=== PATIENT | male | born 1995 | race Caucasian/White ===

== ENCOUNTER 2017-06-11 18:54 | Emergency (ER) | payer SELFPAY ==
[~2017-06-11] VITALS: Ht 185.4 cm; Wt 83.0 kg
[2017-06-11] MEDS ORDERED: IPRATRPIUM/ALBUTEROL 0.5/2.5MG 3 ML NEBU. ONE (19:14)
[2017-06-11] MEDS ORDERED: IPRATRPIUM/ALBUTEROL 0.5/2.5MG 3 ML NEBU. NEB ONE (19:15)
[2017-06-11] MEDS ORDERED: ALBUTEROL SULFATE 8GM INHALER. ONE (19:31)
[2017-06-11] MEDS ORDERED: predniSONE 20 MG TABLET PO ONE (19:45)
[2017-06-11] MEDS ORDERED: AZITHROMYCIN 250 MG TABLET. PO ONE (19:45)
[2017-06-11] MEDS ORDERED: ALBUTEROL SULFATE 8GM INHALER. INH ONE (20:00)
[2017-06-11 20:17] VITALS: BP 128/76
[2017-06-11] MEDS ORDERED: PRED50TA PO (20:28)
[2017-06-11] MEDS ORDERED: ALBU8.5H8 INH (20:28)
[2017-06-11] MEDS ORDERED: AZIT250T PO (20:28)
--- NOTE | 2017-06-11 20:28 | PHYS DOC ---
Past History Past Medical History: Asthma Past Surgical History: No Surgical History Alcohol Use: None Drug Use: None Adult General Chief Complaint Chief Complaint: SHORTNESS OF BREATH HPI HPI Patient is a 22-year-old gentleman with a history of seeing for asthma who presents here today complaining of shortness of breath for 3 days. Patient reports he is concerned that he might have pneumonia or bronchitis. Patient reports he does have a history of asthma. No history of hypertension diabetes lung liver or kidney problems other than asthma. Patient has any prior surgeries. Patient has no known drug allergies. Patient does not smoke drink or do any drugs. Patient has any fevers shakes chills. Patient reports she's had a yellow productive cough. Patient denies any nausea vomiting diarrhea. Patient does have a sore throat. Patient has any ear pain. Patient reports that he uses albuterol MDIs at home however he has run out of his medication. Review of systems: Constitutional: Denies fever or chills Eyes: Denies change in visual acuity, redness, or eye pain HENT: Denies nasal congestion or sore throat Respiratory: Denies cough or shortness of breath All other systems were reviewed and found to be within normal limits, except as documented in this note. Physical exam: Constitutional: Well developed, well nourished, no acute distress, non-toxic appearance. HENT: Normocephalic, atraumatic, bilateral external ears normal, nose normal. Eyes: PERRLA, EOMI, conjunctiva normal, no discharge. Neck: Normal range of motion, no tenderness, supple, no stridor. Cardiovascular: Heart rate regular rhythm, Lungs & Thorax: Mild inspiratory and expiratory wheezing. No tachypnea. No E to a changes. Abdomen: No abdominal distention. Skin: Warm, dry, no erythema, no rash. Back: Normal spinal curvature Extremities: No tenderness, no cyanosis, no clubbing, ROM intact, no edema. Neurologic: Alert and oriented X 3, normal motor function, normal sensory function, no focal deficits noted. Psychologic: Affect normal, judgement normal, mood normal. Chest x-ray as interpreted by ER physician reveals: Normal heart no infiltrates or effusions. Assessment and plan: 22-year-old gentleman who presents here today with an asthma exacerbation secondary to bronchitis. It's unclear whether or not the patient may have an early pneumonia given his symptoms patient be started on antibiotics. Patient was given a DuoNeb in the ED with significant improvement in his symptoms. Patient was started on steroids as well. Patient be given a prescription for prednisone, albuterol, and antibiotics. Patient is a bleeding the ER without any difficulty. Patient feels much better and does not feel that he needs to be admitted this time. 1. Current Medications Current Medications Current Medications Medications (Trade) Dose Ordered Sig/Francoise Start Time Stop Time Status Last Admin Dose Admin Albuterol Sulfate (Ventolin Hfa) 1 puff 1X ONCE 06/11/17 20:00 06/11/17 20:01 DC 06/11/17 19:54 1 PUFF Albuterol/ Ipratropium (Duoneb) 3 ml 1X ONCE 06/11/17 19:15 06/11/17 19:19 DC 06/11/17 19:26 3 ML Azithromycin (Zithromax) 500 mg 1X ONCE 06/11/17 19:45 06/11/17 19:46 DC 06/11/17 19:32 500 MG Prednisone (Prednisone) 40 mg 1X ONCE 06/11/17 19:45 06/11/17 19:46 DC 06/11/17 19:32 40 MG Allergies Allergies Allergies Coded Allergies Type Severity Reaction Last Updated Verified No Known Drug Allergies 06/11/17 No Current Patient Data Vital Signs Vital Signs Date Time Temp Pulse Resp B/P (MAP) Pulse Ox O2 Delivery O2 Flow Rate FiO2 06/11/17 20:17 82 16 128/76 (93) 94 06/11/17 19:35 Room Air 06/11/17 18:58 97.5 EKG EKG [] Radiology/Procedures Radiology/Procedures [] Course & Med Decision Making Course & Med Decision Making Pertinent Labs and Imaging studies reviewed. (See chart for details) [] Dragon Disclaimer Dragon Disclaimer This electronic medical record was generated, in whole or in part, using a voice recognition dictation system. Departure Departure: Impression: Primary Impression: Asthma exacerbation Additional Impression: Bronchitis Disposition: 01 HOME, SELF-CARE Condition: IMPROVED Referrals: TOM CODY MD (PCP) Patient Instructions: Acute Bronchitis, Asthma, Adult Scripts Albuterol Sulfate (PROAIR HFA INHALER) 8.5 Gm Hfa.aer.ad 2 PUFF INH PRN Q6HRS Y for SHORTNESS OF BREATH, #1 INHALER 5 Refills Prov: EMILE BARRIOS MD 06/11/17 Azithromycin (ZITHROMAX) 250 Mg Tablet 250 MG PO DAILY for ANTI-BIOTIC for 4 Days, #4 TAB 0 Refills Prov: EMILE BARRIOS MD 06/11/17 Prednisone (PREDNISONE) 50 Mg Tablet 1 TAB PO DAILY, #5 TAB Prov: EMILE BARRIOS MD 06/11/17 Problem Qualifiers EMILE BARRIOS MD Jun 11, 2017 20:28
--- NOTE | 2017-06-12 08:17 | RAD ---
Indication: Cough, congestion, shortness of breath Technique: PA and lateral views of the chest Comparison: None Findings: Heart is normal in size. Lungs are clear. No pneumothorax or pleural effusion. Visualized bony thorax is within normal limits. Impression: No acute cardiopulmonary process.
== END 2017-06-11 20:38 | disposition home or self-care (01) ==
LOC: ER 18:54
DX: J45.901 Unspecified asthma with (acute) exacerbation (principal)
CPT/HCPCS: 71020; 94640; 99284; J0456; J7512; J7620

== ENCOUNTER 2017-08-13 12:27 | Emergency (ER) | payer SELFPAY ==
[~2017-08-13] VITALS: Ht 185.4 cm; Wt 79.4 kg
[~2017-08-13 12:27] MED LIST: ALBU8.5H8 INH; AZIT250T PO; PRED50TA PO
[2017-08-13 13:03] LABS: BASO % 1 % (0-3); EOS # 0.3 x10^3/uL (0.0-0.7); EOS % 5 % (0-3); HEMATOCRIT 48.1 % (39.0-53.0); HEMOGLOBIN 16.9 g/dL (13.0-17.5); LYMPH # 2.1 x10^3/uL (1.0-4.8); LYMPH % 41 % (24-48); MEAN CORPUSCULAR HEMOGLOBIN 32 pg (25-35); MEAN CORPUSCULAR HGB CONC 35 g/dL (31-37); MEAN CORPUSCULAR VOLUME 90 fL (79-100); MONO # 0.5 x10^3/uL (0.0-1.1); MONO % 10 % (0-9); NEUT # 2.2 x10^3uL (1.8-7.7); NEUT % 43 % (31-73); PLATELET COUNT 254 x10^3/uL (140-400); RED BLOOD COUNT 5.33 x10^6/uL (4.30-5.70); RED CELL DISTRIBUTION WIDTH 13.2 % (11.5-14.5); WHITE BLOOD COUNT 5.1 x10^3/uL (4.0-11.0)
[2017-08-13] MEDS ORDERED: IV NORMAL SALINE 1,000ML 1,000 ML IV ONE (13:15)
[2017-08-13 13:16] LABS: ALBUMIN 4.3 g/dL (3.4-5.0); ALBUMIN/GLOBULIN RATIO 1.3 (1.0-1.7); CALCIUM 9.1 mg/dL (8.5-10.1); CREATININE 1.1 mg/dL (0.7-1.3); GFR 85.3; POTASSIUM 3.9 mmol/L (3.5-5.1); TOTAL BILIRUBIN 0.6 mg/dL (0.2-1.0); TOTAL PROTEIN 7.7 g/dL (6.4-8.2)
[2017-08-13] MEDS ORDERED: KETOROLAC 30 MG/ML VIAL. IV ONE (13:30)
[2017-08-13] MEDS ORDERED: ONDANSETRON PF 4 MG/2 ML VIAL. IV ONE (13:30)
--- NOTE | 2017-08-13 14:10 | RAD ---
Duplex sonogram of the scrotum and testicles History: Right greater than left testicular pain. Findings: The longitudinal and AP and transverse dimensions of the right testicle are 4.5 cm and 2.3 cm and 3.3 cm respectively. The longitudinal and AP and transverse dimensions of the left testicle are 2.9 cm and 2.1 cm and 3.6 cm respectively. Both testicles are homogeneous without mass. The head of the epididymis on the right side measures 17 mm. No significant hydrocele is seen on the right side. The head of the epididymis on the left side measures 14 mm. No significant hydrocele is seen on the left side. Symmetric color Doppler flow is seen within the testicles. IMPRESSION: Normal study.
[2017-08-13 14:47] LABS: INFLUENZA A PATIENT NEGATIVE (NEGATIVE); INFLUENZA B PATIENT NEGATIVE (NEGATIVE)
[2017-08-13 15:36] LABS: BACTERIA,URINE 0 /HPF (0-FEW); BILIRUBIN,URINE NEG (NEG); CLARITY,URINE CLEAR; COLOR,URINE YELLOW; GLUCOSE,URINE NEG (NEG); NITRITE,URINE NEG (NEG); RBC,URINE RARE /HPF (0-2); SQUAMOUS EPITHELIAL CELL,UR FEW /LPF; UROBILINOGEN,URINE 0.2 mg/dL (0.2 mg/dL); WBC,URINE OCC /HPF (0-4)
--- NOTE | 2017-08-13 16:45 | PHYS DOC ---
Past History Past Medical History: Asthma Past Surgical History: No Surgical History Alcohol Use: None Drug Use: None Adult General Chief Complaint Chief Complaint: FLANK PAIN HPI HPI Patient is a 22 year old male who presents with flank pain. The patient reports several complaints including bilateral flank pain, nasal congestion, sore throat, dry cough, body aches, malaise, nausea, intermittent bilateral testicular pain. Denies fevers/chills, chest pain, shortness of breath, vomiting, diarrhea, abdominal pain, dysuria, hematuria, penile discharge. He has history of asthma. He also states that he feels anxious in crowds & wants referral for psych eval. Denies suicidal or homicidal ideation, no formal psych diagnosis. Review of Systems Review of Systems Constitutional: Denies fever or chills Eyes: Denies change in visual acuity HENT: Reports nasal congestion & sore throat Respiratory: Reports cough, denies shortness of breath Cardiovascular: Denies chest pain or edema GI: REports nausea. Denies abdominal pain, vomiting, bloody stools or diarrhea : Denies dysuria or hematuria, reports testicular pain Musculoskeletal: Reports flank pain & body aches Integument: Denies rash or skin lesions Neurologic: Denies headache, focal weakness or sensory changes All other systems were reviewed and found to be within normal limits, except as documented in this note. Current Medications Current Medications Current Medications Medications (Trade) Dose Ordered Sig/Francoise Start Time Stop Time Status Last Admin Dose Admin Ketorolac Tromethamine (Toradol) 30 mg 1X ONCE 08/13/17 13:30 08/13/17 13:31 DC 08/13/17 14:14 30 MG Ondansetron HCl (Zofran) 4 mg 1X ONCE 08/13/17 13:30 08/13/17 13:31 DC 08/13/17 14:14 4 MG Sodium Chloride 1,000 ml @ 1,000 mls/hr 1X ONCE 08/13/17 13:15 08/13/17 14:14 DC 08/13/17 14:14 1,000 MLS/HR Allergies Allergies Allergies Coded Allergies Type Severity Reaction Last Updated Verified No Known Drug Allergies 06/11/17 No Physical Exam Physical Exam Constitutional: Well developed, well nourished, no acute distress, non-toxic appearance. HENT: Normocephalic, atraumatic, bilateral external ears normal, oropharynx moist, no tonsillar enlargement or exudate, nose normal. Eyes: PERRLA, EOMI, conjunctiva normal, no discharge. Neck: supple, no stridor. Cardiovascular: RRR, no murmurs, no edema. Lungs & Thorax: LCTAB, no wheezing, no respiratory distress. Abdomen: soft, nontender, nondistended. no masses or pulsatile masses, no rebound/guarding. : normal appearing male external genitalia with circumcised penis, no penile discharge or rashes, no testicular masses, mild nonfocal tenderness bilateral testicles without swelling. Skin: Warm, dry, no erythema, no rash. Back: no CVA tenderness Extremities: No tenderness, no edema. no calf tenderness or swelling Neurologic: Alert and oriented X 3, no focal deficits noted. Psychologic: Affect normal, judgement normal, mood normal. Current Patient Data Vital Signs Vital Signs Date Time Temp Pulse Resp B/P (MAP) Pulse Ox O2 Delivery O2 Flow Rate FiO2 08/13/17 12:45 97.8 75 18 98 Room Air Lab Results Laboratory Tests Test 08/13/17 12:50 08/13/17 14:15 08/13/17 15:10 White Blood Count 5.1 x10^3/uL (4.0-11.0) Red Blood Count 5.33 x10^6/uL (4.30-5.70) Hemoglobin 16.9 g/dL (13.0-17.5) Hematocrit 48.1 % (39.0-53.0) Mean Corpuscular Volume 90 fL (79-100) Mean Corpuscular Hemoglobin 32 pg (25-35) Mean Corpuscular Hemoglobin Concent 35 g/dL (31-37) Red Cell Distribution Width 13.2 % (11.5-14.5) Platelet Count 254 x10^3/uL (140-400) Neutrophils (%) (Auto) 43 % (31-73) Lymphocytes (%) (Auto) 41 % (24-48) Monocytes (%) (Auto) 10 % (0-9) H Eosinophils (%) (Auto) 5 % (0-3) H Basophils (%) (Auto) 1 % (0-3) Neutrophils # (Auto) 2.2 x10^3uL (1.8-7.7) Lymphocytes # (Auto) 2.1 x10^3/uL (1.0-4.8) Monocytes # (Auto) 0.5 x10^3/uL (0.0-1.1) Eosinophils # (Auto) 0.3 x10^3/uL (0.0-0.7) Basophils # (Auto) 0.0 x10^3/uL (0.0-0.2) Sodium Level 143 mmol/L (136-145) Potassium Level 3.9 mmol/L (3.5-5.1) Chloride Level 104 mmol/L (98-107) Carbon Dioxide Level 29 mmol/L (21-32) Anion Gap 10 (6-14) Blood Urea Nitrogen 11 mg/dL (8-26) Creatinine 1.1 mg/dL (0.7-1.3) Estimated GFR (Cockcroft-Gault) 85.3 BUN/Creatinine Ratio 10 (6-20) Glucose Level 80 mg/dL (70-99) Calcium Level 9.1 mg/dL (8.5-10.1) Total Bilirubin 0.6 mg/dL (0.2-1.0) Aspartate Amino Transferase (AST) 13 U/L (15-37) L Alanine Aminotransferase (ALT) 30 U/L (16-63) Alkaline Phosphatase 92 U/L (46-116) Total Protein 7.7 g/dL (6.4-8.2) Albumin 4.3 g/dL (3.4-5.0) Albumin/Globulin Ratio 1.3 (1.0-1.7) Influenza Type A (Rapid) Negative (NEGATIVE) Influenza Type B (Rapid) Negative (NEGATIVE) Group A Streptococcus Rapid Negative (NEGATIVE) Urine Collection Type Unknown Urine Color Yellow Urine Clarity Clear Urine pH 7.0 Urine Specific [place] 1.020 Urine Protein Neg (NEG-TRACE) Urine Glucose (UA) Neg mg/dL (NEG) Urine Ketones (Stick) Neg mg/dL (NEG) Urine Blood Neg (NEG) Urine Nitrite Neg (NEG) Urine Bilirubin Neg (NEG) Urine Urobilinogen Dipstick 0.2 mg/dL (0.2 mg/dL) Urine Leukocyte Esterase Neg (NEG) Urine RBC Rare /HPF (0-2) Urine WBC Occ /HPF (0-4) Urine Squamous Epithelial Cells Few /LPF Urine Bacteria 0 /HPF (0-FEW) Urine Mucus Slight /LPF EKG EKG [] Radiology/Procedures Radiology/Procedures PROCEDURE: TESTICULAR/SCROTUM ADDENDUM Addendum: Duplex sonography of the scrotum and both testicles was performed including borja scale evaluation and color flow and waveform spectral analysis. DICTATED AND SIGNED BY: EVELINA ALMAZAN MD DATE: 08/13/17 9436 CC: CLARA DUDLEY MD; PCP,NO ~ Duplex sonogram of the scrotum and testicles History: Right greater than left testicular pain. Findings: The longitudinal and AP and transverse dimensions of the right testicle are 4.5 cm and 2.3 cm and 3.3 cm respectively. The longitudinal and AP and transverse dimensions of the left testicle are 2.9 cm and 2.1 cm and 3.6 cm respectively. Both testicles are homogeneous without mass. The head of the epididymis on the right side measures 17 mm. No significant hydrocele is seen on the right side. The head of the epididymis on the left side measures 14 mm. No significant hydrocele is seen on the left side. Symmetric color Doppler flow is seen within the testicles. IMPRESSION: Normal study. DICTATED AND SIGNED BY: EVELINA ALMAZAN MD DATE: 08/13/17 1053 [] Course & Med Decision Making Course & Med Decision Making Pertinent Labs and Imaging studies reviewed. (See chart for details) The patient presents with multiple complaints as described above. Well appearing with stable vitals. Obtained labs, UA, testicular ultrasound. Negative for influenza, normal UA, no testicular torsion or other acute pathology on US. May have viral syndrome. Recommend rest, hydration, tylenol/ ibuprofen for pain or fevers, establish care with a PCP in about 1 week, given referral to [facility] for mental health screening. Return for severe shortness of breath or chest pain, severe abdominal pain, uncontrolled vomiting , acute severe testicular pain, suicidal thoughts, any otherwise worsening condition. Discharged home in stable condition. [] Dragon Disclaimer Dragon Disclaimer This electronic medical record was generated, in whole or in part, using a voice recognition dictation system. Departure Departure: Impression: Primary Impression: Viral syndrome Disposition: HOME, SELF-CARE Condition: STABLE Referrals: PCP,NO (PCP) Patient Instructions: Viral Syndrome Additional Instructions: You were seen in the emergency department today. Tests here did not show any serious abnormality. Please rest, drink fluids, take Tylenol or ibuprofen for pain or fever. Your symptoms may be caused by a viral illness which should resolve. Please follow-up with a primary care physician in 2-3 days if not improving. Also follow-up at the [facility] for mental health management. Return to the emergency department for severe chest pain or shortness of breath , severe abdominal pain, uncontrolled vomiting, severe testicular pain, suicidal thoughts, any otherwise worsening condition. Scripts Albuterol Sulfate (PROAIR HFA INHALER) 8.5 Gm Hfa.aer.ad 1 PUFF INH PRN Q6HRS Y for SHORTNESS OF BREATH, #1 INHALER 0 Refills Prov: CLARA DUDLEY MD 08/13/17 CLARA DUDLEY MD Aug 13, 2017 16:45
[2017-08-13] MEDS ORDERED: ALBU8.5H8 INH (17:01)
[2017-08-13 17:10] VITALS: BP 123/61
== END 2017-08-13 17:00 | disposition home or self-care (01) ==
LOC: ER 12:27
DX: B34.9 Viral infection, unspecified (principal); N50.812 Left testicular pain; N50.811 Right testicular pain; J45.909 Unspecified asthma, uncomplicated
CPT/HCPCS: 36415; 76870; 80053; 81001; 85025; 87070; 87491; 87591; 87804; 87880; 96361; 96374; 96375; 99285; J1885; J2405; J7030

== ENCOUNTER 2017-09-22 18:53 | Emergency (ER) | payer SELFPAY ==
[~2017-09-22] VITALS: Ht 185.4 cm; Wt 83.5 kg
[2017-09-22] MEDS: IV NORMAL SALINE 1,000ML 1,000 ML IV SCH ×2 (19:00→20:00)
[2017-09-22 20:18] LABS: BASO # 0.1 x10^3/uL (0.0-0.2); BASO % 1 % (0-3); EOS # 0.6 x10^3/uL (0.0-0.7); EOS % 10 % (0-3); HEMATOCRIT 42.6 % (39.0-53.0); LYMPH # 2.1 x10^3/uL (1.0-4.8); LYMPH % 34 % (24-48); MEAN CORPUSCULAR HEMOGLOBIN 32 pg (25-35); MEAN CORPUSCULAR HGB CONC 35 g/dL (31-37); MEAN CORPUSCULAR VOLUME 91 fL (79-100); MONO # 0.6 x10^3/uL (0.0-1.1); MONO % 9 % (0-9); NEUT # 2.9 x10^3uL (1.8-7.7); NEUT % 47 % (31-73); PLATELET COUNT 295 x10^3/uL (140-400); RED CELL DISTRIBUTION WIDTH 13.5 % (11.5-14.5); WHITE BLOOD COUNT 6.3 x10^3/uL (4.0-11.0)
[2017-09-22 20:21] LABS: BACTERIA,URINE 0 /HPF (0-FEW); BILIRUBIN,URINE NEG (NEG); CLARITY,URINE CLEAR; COLOR,URINE YELLOW; GLUCOSE,URINE NEG (NEG); NITRITE,URINE NEG (NEG); SQUAMOUS EPITHELIAL CELL,UR OCC /LPF; UROBILINOGEN,URINE 0.2 mg/dL (0.2 mg/dL); WBC,URINE 0 /HPF (0-4)
[2017-09-22 20:22] LABS: RBC,URINE OCC /HPF (0-2)
[2017-09-22 20:29] LABS: ALBUMIN 3.9 g/dL (3.4-5.0); ALBUMIN/GLOBULIN RATIO 1.1 (1.0-1.7); CREATININE 0.9 mg/dL (0.7-1.3); GFR 107.6; POTASSIUM 3.8 mmol/L (3.5-5.1); TOTAL BILIRUBIN 0.4 mg/dL (0.2-1.0); TOTAL PROTEIN 7.3 g/dL (6.4-8.2)
[2017-09-22] MEDS ORDERED: ONDA4TAB10 SL (20:42)
--- NOTE | 2017-09-22 20:43 | PHYS DOC ---
Past History Past Medical History: Asthma Past Surgical History: No Surgical History Alcohol Use: None Drug Use: None Adult General Chief Complaint Chief Complaint: ABDOMINAL PAIN HPI HPI Patient is a [age] year old [sex] who presents with [] Review of Systems Review of Systems Constitutional: Denies fever or chills [] Eyes: Denies change in visual acuity, redness, or eye pain [] HENT: Denies nasal congestion or sore throat [] Respiratory: Denies cough or shortness of breath [] Cardiovascular: No additional information not addressed in HPI [] GI: Denies abdominal pain, nausea, vomiting, bloody stools or diarrhea [] : Denies dysuria or hematuria [] Musculoskeletal: Denies back pain or joint pain [] Integument: Denies rash or skin lesions [] Neurologic: Denies headache, focal weakness or sensory changes [] Endocrine: Denies polyuria or polydipsia [] All other systems were reviewed and found to be within normal limits, except as documented in this note. Current Medications Current Medications Current Medications Medications (Trade) Dose Ordered Sig/Francoise Start Time Stop Time Status Last Admin Dose Admin Sodium Chloride 1,000 ml @ 1,000 mls/hr Q1H 09/22/17 19:00 09/22/17 19:00 1,000 MLS/HR Allergies Allergies Allergies Coded Allergies Type Severity Reaction Last Updated Verified No Known Drug Allergies 06/11/17 No Physical Exam Physical Exam Constitutional: Well developed, well nourished, no acute distress, non-toxic appearance. [] HENT: Normocephalic, atraumatic, bilateral external ears normal, oropharynx moist, no oral exudates, nose normal. [] Eyes: PERRLA, EOMI, conjunctiva normal, no discharge. [] Neck: Normal range of motion, no tenderness, supple, no stridor. [] Cardiovascular:Heart rate regular rhythm, no murmur [] Lungs & Thorax: Bilateral breath sounds clear to auscultation [] Abdomen: Bowel sounds normal, soft, no tenderness, no masses, no pulsatile masses. [] Skin: Warm, dry, no erythema, no rash. [] Back: No tenderness, no CVA tenderness. [] Extremities: No tenderness, no cyanosis, no clubbing, ROM intact, no edema. [] Neurologic: Alert and oriented X 3, normal motor function, normal sensory function, no focal deficits noted. [] Psychologic: Affect normal, judgement normal, mood normal. [] Current Patient Data Lab Results Laboratory Tests Test 09/22/17 19:53 White Blood Count 6.3 x10^3/uL (4.0-11.0) Red Blood Count 4.70 x10^6/uL (4.30-5.70) Hemoglobin 15.0 g/dL (13.0-17.5) Hematocrit 42.6 % (39.0-53.0) Mean Corpuscular Volume 91 fL (79-100) Mean Corpuscular Hemoglobin 32 pg (25-35) Mean Corpuscular Hemoglobin Concent 35 g/dL (31-37) Red Cell Distribution Width 13.5 % (11.5-14.5) Platelet Count 295 x10^3/uL (140-400) Neutrophils (%) (Auto) 47 % (31-73) Lymphocytes (%) (Auto) 34 % (24-48) Monocytes (%) (Auto) 9 % (0-9) Eosinophils (%) (Auto) 10 % (0-3) H Basophils (%) (Auto) 1 % (0-3) Neutrophils # (Auto) 2.9 x10^3uL (1.8-7.7) Lymphocytes # (Auto) 2.1 x10^3/uL (1.0-4.8) Monocytes # (Auto) 0.6 x10^3/uL (0.0-1.1) Eosinophils # (Auto) 0.6 x10^3/uL (0.0-0.7) Basophils # (Auto) 0.1 x10^3/uL (0.0-0.2) Urine Collection Type Unknown Urine Color Yellow Urine Clarity Clear Urine pH 6.0 Urine Specific [place] <=1.005 Urine Protein Neg (NEG-TRACE) Urine Glucose (UA) Neg mg/dL (NEG) Urine Ketones (Stick) Neg mg/dL (NEG) Urine Blood Trace (NEG) Urine Nitrite Neg (NEG) Urine Bilirubin Neg (NEG) Urine Urobilinogen Dipstick 0.2 mg/dL (0.2 mg/dL) Urine Leukocyte Esterase Neg (NEG) Urine RBC Occ /HPF (0-2) Urine WBC 0 /HPF (0-4) Urine Squamous Epithelial Cells Occ /LPF Urine Bacteria 0 /HPF (0-FEW) Sodium Level 141 mmol/L (136-145) Potassium Level 3.8 mmol/L (3.5-5.1) Chloride Level 104 mmol/L (98-107) Carbon Dioxide Level 25 mmol/L (21-32) Anion Gap 12 (6-14) Blood Urea Nitrogen 12 mg/dL (8-26) Creatinine 0.9 mg/dL (0.7-1.3) Estimated GFR (Cockcroft-Gault) 107.6 BUN/Creatinine Ratio 13 (6-20) Glucose Level 118 mg/dL (70-99) H Calcium Level 9.0 mg/dL (8.5-10.1) Total Bilirubin 0.4 mg/dL (0.2-1.0) Aspartate Amino Transferase (AST) 12 U/L (15-37) L Alanine Aminotransferase (ALT) 21 U/L (16-63) Alkaline Phosphatase 92 U/L (46-116) Total Protein 7.3 g/dL (6.4-8.2) Albumin 3.9 g/dL (3.4-5.0) Albumin/Globulin Ratio 1.1 (1.0-1.7) Lipase 78 U/L (73-393) EKG EKG [] Radiology/Procedures Radiology/Procedures [] Course & Med Decision Making Course & Med Decision Making Pertinent Labs and Imaging studies reviewed. (See chart for details) [] Dragon Disclaimer Dragon Disclaimer This electronic medical record was generated, in whole or in part, using a voice recognition dictation system. Departure Departure: Impression: Primary Impression: Viral gastroenteritis Additional Impressions: Vomiting and diarrhea Anxiety about health Disposition: 01 HOME, SELF-CARE Condition: GOOD Referrals: PCP,NO (PCP) Patient Instructions: Viral Gastroenteritis, [id number] Additional Instructions: It appears that you have viral gastroenteritis. This is an illness where the patient experiences crampy abdominal pain nausea sometimes vomiting and typically loose stool or diarrhea all as a result of a viral infection. This illness will resolve spontaneously with symptomatic and supportive care. Be sure to drink plenty of fluids. Use Zofran 1 pill under your tongue every 4 hours as needed for nausea. Follow-up with your doctor in 2 days and return immediately for new severe worsening symptoms Scripts Ondansetron (ZOFRAN ODT) 4 Mg Tab.rapdis 1 TAB SL Q4HRS, #15 TAB Prov: AMBER RANDHAWA MD 09/22/17 Problem Qualifiers AMBER RANDHAWA MD Sep 22, 2017 20:43
[2017-09-23 01:27] VITALS: BP 119/68
== END 2017-09-22 21:14 | disposition home or self-care (01) ==
LOC: ER 18:53
DX: A08.4 Viral intestinal infection, unspecified (principal); F41.9 Anxiety disorder, unspecified; J45.909 Unspecified asthma, uncomplicated
CPT/HCPCS: 36415; 80053; 81001; 83690; 85025; 96360; 99284-25; J7030

== ENCOUNTER 2018-11-30 14:49 | Emergency (ER) | payer BC ==
[~2018-11-30] VITALS: Ht 185.4 cm; Wt 90.8 kg
[2018-11-30 14:49] VITALS: BP 137/89
[~2018-11-30 14:49] MED LIST changes: +ALBU2.5V8 INH; -ALBU8.5H8 INH; +ONDA4TAB10 SL
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
[2018-11-30] MEDS ORDERED: KETOROLAC 15 MG/ML VIAL. IM ONE (15:30)
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
[2018-11-30] MEDS ORDERED: MELO7.5T29 PO (16:21)
[2018-11-30] MEDS ORDERED: ORPH-16 PO (16:21)
== END 2018-11-30 16:27 | disposition home or self-care (01) ==
LOC: ER 14:49
DX: S09.8XXA Other specified injuries of head, initial encounter (principal); S29.9XXA Unspecified injury of thorax, initial encounter; J45.909 Unspecified asthma, uncomplicated; V49.49XA Driver injured in collision with other motor vehicles in traffic accident, initial encounter; Y93.I9 Activity, other involving external motion; Y92.488 Other paved roadways as the place of occurrence of the external cause; Y99.8 Other external cause status
CPT/HCPCS: 70450; 71046; 96372; 99284; J1885

== ENCOUNTER 2020-09-29 16:57 | Emergency (ER) | payer BC ==
[~2020-09-29] VITALS: Ht 185.4 cm; Wt 102.3 kg
[~2020-09-29 16:57] MED LIST changes: +MELO7.5T29 PO; +ORPH-16 PO
[2020-09-29] MEDS ORDERED: IV NORMAL SALINE 1,000ML 1,000 ML IV ONE (17:15)
--- NOTE | 2020-09-29 17:32 | PHYS DOC ---
Past History Past Medical History: Asthma Past Surgical History: Other Additional Past Surgical Histo: wisdom teeth removed 07/11/20 Smoking: Non-smoker Alcohol Use: Occasionally Drug Use: None Social History Narrative: last used a few days ago General Adult EDM: Chief Complaint: DIZZY/LIGHT HEADED HPI: HPI: 25 year old male presents with history of intermittent headaches, dizziness, and confusion which has been frequent x 1.5 months. Patient reports these symptoms seemed to occur after patient was diagnosed with COVID-19. Denies trauma. Denies fever/chills. Denies neck pain. Patient reports he has felt "out of it" recently. Review of Systems: Review of Systems: Constitutional: Denies fever or chills Eyes: Denies change in visual acuity, redness, or eye pain HENT: Denies nasal congestion or sore throat Respiratory: Denies cough or shortness of breath Cardiovascular: Denies chest pain or palpitations GI: Denies abdominal pain, nausea, vomiting, or diarrhea : Denies dysuria or hematuria Musculoskeletal: Denies back pain or joint pain Integument: Denies rash or skin lesions Neurologic: Reports headache, confusion, and dizziness; denies focal weakness or sensory changes Complete systems were reviewed and found to be within normal limits, except as documented in this note. Current Medications: Current Meds: Current Medications Medications (Trade) Dose Ordered Sig/Francoise Start Time Stop Time Status Last Admin Dose Admin Sodium Chloride 1,000 ml @ 1,000 mls/hr 1X ONCE 09/29/20 17:15 09/29/20 18:14 Allergies: Allergies: Allergies Coded Allergies Type Severity Reaction Last Updated Verified No Known Drug Allergies 09/29/20 No Physical Exam: PE: Constitutional: Well developed, well nourished, no acute distress, non-toxic appearance HENT: Normocephalic, atraumatic Eyes: PERRL, EOMI, conjunctiva normal, no discharge Neck: Normal range of motion, no tenderness, supple Lungs & Thorax: Equal chest rise and fall, no respiratory distress Abdomen: Soft, no tenderness Skin: Warm, dry, no erythema, no rash Extremities: No tenderness, ROM intact, no edema Neurologic: Alert and oriented X 3, normal motor and sensory functions noted, no focal deficits noted Psychologic: Affect normal, judgement normal Current Patient Data: Vital Signs: Vital Signs Date Time Temp Pulse Resp B/P (MAP) Pulse Ox O2 Delivery O2 Flow Rate FiO2 09/29/20 17:16 98.1 91 18 143/94 (110) 98 EKG: EKG: @1727 NSR at 66bpm with PACs, no ST elevation, QRS 96ms, QT/QTc 376/396ms Radiology/Procedures: Radiology/Procedures: [] Heart Score: C/O Chest Pain: N/A Course & Med Decision Making: Course & Med Decision Making Pertinent Lab studies reviewed. (See chart for details) Patient presents with intermittent headache, dizziness, and confusion x 1.5 months. Reports occurred after being diagnosed with COVID-19. Denies trauma. Denies neck pain. Patient neurologically intact. No midline cervical spine tenderness. Patient reports recently undergoing laboratory evaluation with his PCP. Reports called his PCP today who instructed him to present to the ED for further evaluation. Given normal neurological exam and no history of trauma, decision that CT imaging exposure to radiation outweighing benefits. Labs originally ordered. Patient requests to hold blood work as he was seen by PCP 1 week ago with blood work obtained. Patient also reports "afraid of needles". Patient therefore declines blood work draw at this time. EKG stable. Patient stable for discharge home with outpatient follow-up with PCP/neurology. Neurology referral provided. Discussed findings and plan with patient, who acknowledges understanding and agreement. Stephanie Disclaimer: Stephanie Disclaimer: This electronic medical record was generated, in whole or in part, using a voice recognition dictation system. Departure Departure: Impression: Primary Impression: Dizziness Additional Impression: Headache Qualified Codes: R51.9 - Headache, unspecified Disposition: 01 DC HOME SELF CARE/HOMELESS Condition: STABLE Referrals: MAZIN DENTON (PCP) KASHMIR ARAYA MD Patient Instructions: Dizziness, Zhwb-jf-Hvad, Headache, FAQs Additional Instructions: Increase fluid hydration. Scripts Butalb/Acetaminophen/Caffeine ([id number] 50-325-40) 1 Each Tablet 1 EACH PO Q6HRS PRN for HEADACHE, #14 TAB Prov: AMBER VELA DO 09/29/20 AMBER VELA DO Sep 29, 2020 17:32
--- NOTE | 2020-09-29 17:33 | EKG ---
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
[2020-09-29] MEDS ORDERED: BUTA1TAB23 PO (17:39)
[2020-09-29 18:10] VITALS: BP 119/72
== END 2020-09-29 18:10 | disposition home or self-care (01) ==
LOC: ER 16:57
DX: R51.9 Headache, unspecified (principal); R42 Dizziness and giddiness; R41.0 Disorientation, unspecified; J45.909 Unspecified asthma, uncomplicated
CPT/HCPCS: 93005; 99283

== ENCOUNTER 2021-01-13 16:17 | Emergency (ER) | payer BC ==
[~2021-01-13] VITALS: Ht 185.4 cm; Wt 102.3 kg
[~2021-01-13 16:17] MED LIST changes: +BUTA1TAB23 PO
[2021-01-13 16:41] VITALS: BP 141/89
--- NOTE | 2021-01-13 17:17 | PHYS DOC ---
Past History Past Medical History: Asthma Past Surgical History: Other Additional Past Surgical Histo: wisdom teeth removed 07/11/20 Smoking: Non-smoker Alcohol Use: None Drug Use: None General Adult EDM: Chief Complaint: COUGH HPI: HPI: Patient is a 25-year-old male who presents with hemoptysis for 4 days. Patient was diagnosed with COVID-19 on 01/08. He reports that his sputum has been clear/yellow with bright red specks of blood in it. Patient reports that its most it has not even been half a teaspoon of blood. Patient denies shortness of breath, fever, chest pain, blood thinners. Patient vital signs are stable heart rate 77, 99% on room air. Review of Systems: Review of Systems: 14 body systems of the review of systems have been reviewed. See HPI for pertinent positive and negative responses, otherwise all other systems are negative, nonpertinent or noncontributory Allergies: Allergies: Allergies Coded Allergies Type Severity Reaction Last Updated Verified No Known Drug Allergies 09/29/20 No Physical Exam: PE: Constitutional: Well developed, well nourished, no acute distress, non-toxic appearance. [] HENT: Normocephalic, atraumatic, bilateral external ears normal, oropharynx moist, no oral exudates, nose normal. [] Eyes: PERRLA, EOMI, conjunctiva normal, no discharge. [] Neck: Normal range of motion, no tenderness, supple, no stridor. [] Cardiovascular:Heart rate regular rhythm, no murmur [] Lungs & Thorax: Bilateral breath sounds clear to auscultation [] Abdomen: Bowel sounds normal, soft, no tenderness, no masses, no pulsatile masses. [] Skin: Warm, dry, no erythema, no rash. [] Back: No tenderness, no CVA tenderness. [] Extremities: No tenderness, no cyanosis, no clubbing, ROM intact, no edema. [] Neurologic: Alert and oriented X 3, normal motor function, normal sensory function, no focal deficits noted. [] Psychologic: Affect normal, judgement normal, mood normal. [] Current Patient Data: Vital Signs: Vital Signs Date Time Temp Pulse Resp B/P (MAP) Pulse Ox O2 Delivery O2 Flow Rate FiO2 01/13/21 16:41 98.3 77 16 141/89 99 Room Air EKG: EKG: [] Radiology/Procedures: Radiology/Procedures: PROCEDURE: PORTABLE CHEST 1V XR CHEST 1V History: Hemoptysis, covid positive. Comparison: None. Technique: Portable AP radiograph of the chest. Findings: The lungs are adequately inflated. There are subtle hazy bilateral airspace opacities. No pleural effusion or pneumothorax. Cardiac mediastinal silhouette and pulmonary vasculature are within normal limits. Osseous structures and soft tissues are unremarkable. Impression: 1. Subtle hazy bilateral airspace opacities. Electronically signed by: Barry Phoenix MD (01/13/2021 5:29 PM) [facility] DICTATED AND SIGNED BY: BARRY PHOENIX MD DATE: 01/13/211727 CC: LASHELL JIMÉNEZ APRN; MAZIN DENTON ~MTH0 0 Heart Score: C/O Chest Pain: No Risk Factors: Risk Factors: DM, Current or recent (<one month) smoker, HTN, HLP, family history of CAD, obesity. Risk Scores: Score 0 - 3: 2.5% MACE over next 6 weeks - Discharge Home Score 4 - 6: 20.3% MACE over next 6 weeks - Admit for Clinical Observation Score 7 - 10: 72.7% MACE over next 6 weeks - Early Invasive Strategies Course & Med Decision Making: Course & Med Decision Making Pertinent Labs and Imaging studies reviewed. (See chart for details) Patient is a 25-year-old male being seen in the ER for hemoptysis x4 days with a positive COVID-19 diagnosis. Patient has a Wells score of 1. He has low probability of a PE, his vital signs are stable, he is not tachycardic, no shortness of breath. A chest x-ray was performed. His chest x-ray showed subtle hazy bilateral airspace opacities. Patient was treated with an antibiotic. I discussed with patient all findings and diagnostic testing as well as the need to follow-up with PCP for further evaluation and treatment or return to the ER if any new or worsening symptoms. Strict return precautions were also discussed at length. Patient voiced understanding and agreement with the plan. Patient is hemodynamically stable at the time of disposition. Dragon Disclaimer: Dragon Disclaimer: This electronic medical record was generated, in whole or in part, using a voice recognition dictation system. Departure Departure: Impression: Primary Impression: Pneumonia Qualified Codes: J18.9 - Pneumonia, unspecified organism Additional Impression: COVID-19 Disposition: 01 HOME / SELF CARE / HOMELESS Condition: GOOD Referrals: MAZIN DENTON (PCP) Patient Instructions: Pneumonia, Adult Additional Instructions: You were seen in the ER for hemoptysis. Your chest x-ray shows pneumonia. Please take antibiotic as prescribed. Please take full dose of antibiotic. You can take Tylenol/ibuprofen for pain or fevers. Rest, increase fluids. Please follow-up with your primary care provider tomorrow regarding your ER visit today. If you develop worsening of your shortness of breath, increased blood in your sputum, chest pain, high fevers please return to the ER immediately. EMERGENCY DEPARTMENT GENERAL DISCHARGE INSTRUCTIONS Thank you for coming to [facility] (ED) today and trusting us with you care. We trust that you had a positivie experience in our Emergency Department. If you wish to speak to the department management, you may call the director at [phone]. YOUR FOLLOW UP INSTRUCTIONS ARE FOLLOWS: 1. Do you have a private Doctor? If you do not have a private doctor, please ask for a resource list of physicians or clinics that may be able to assist you with follow up care. 2. The Emergency Physician has interpreted your x-rays. The X-Ray specialist will also review them. If there is a change in the findings, you will be notified in 48 hours when at all possible. 3. A lab test or culture has been done, your results will be reviewed and you will be notified if you need a change in treatment. ADDITIONAL INSTRUCTIONS AND INFORMATION: 1. Your care today has been supervised by a physician who is specially trained in emergency care. Many problems require more than one evaluation for a complete diagnosis and treatment. We recommend that you schedule your follow up appointment as recommended to ensure complete treatment of you illness or injury. If you are unable to obtain follow up care and continue to have a problem, or if your condition worsens, we recommend that you return to the ED. 2. We are not able to safely determine your condition over the phone nor are we able to give sound medical advice over the phone. For these safety reasons, if you call for medical advice we will ask you to come to the ED for further evaluation. 3. If you have any questions regarding these discharge instructions please call the ED at [phone]. SAFETY INFORMATION: In the interest of safety, wellness, and injury prevention; we encourage you to wear your sealbelt, if you smoke; quite smoking, and we encourage family to use a protective helmet for bicycling and other sporting events that present an increased risk for head injury. IF YOUR SYMPTOMS WORSEN OR NEW SYMPTOMS DEVELOP, OR YOU HAVE CONCERNS ABOUT YOUR CONDITION; OR IF YOUR CONDITION WORSENS WHILE YOU ARE WAITING FOR YOUR FOLLOW UP APPOINTMENT; EITHER CONTACT YOUR PRIMARY CARE DOCTOR, THE PHYSICIAN WHOSE NAME AND NUMBER YOU WERE GIVEN, OR RETURN TO THE ED IMMEDIATELY. Scripts Azithromycin (AZITHROMYCIN TABLET) 250 Mg Tablet 1 PKG PO UD for pneumonia for 5 Days, #6 TAB 0 Refills 2 the first day followed by 1 for days 2-5 Prov: LASHELL JIMÉNEZ APRN 01/13/21 LASHELL JIMÉNEZ APRN Jan 13, 2021 17:17
--- NOTE | 2021-01-13 17:31 | RAD ---
XR CHEST 1V History: Hemoptysis, covid positive. Comparison: None. Technique: Portable AP radiograph of the chest. Findings: The lungs are adequately inflated. There are subtle hazy bilateral airspace opacities. No pleural eff usion or pneumothorax. Cardiac mediastinal silhouette and pulmonary vasculature are within normal lambert its. Osseous structures and soft tissues are unremarkable. Impression: 1. Subtle hazy bilateral airspace opacities. Electronically signed by: Barry Phoenix MD (01/13/2021 5:29 PM) [facility]
[2021-01-13] MEDS ORDERED: AZIT250T6 PO (18:15)
== END 2021-01-13 18:21 | disposition home or self-care (01) ==
LOC: ER 16:17
DX: U07.1 COVID-19 (principal); J12.82 Pneumonia due to coronavirus disease 2019; R04.2 Hemoptysis; J45.909 Unspecified asthma, uncomplicated
CPT/HCPCS: 71045; 99283